=== PATIENT | female | born 1960 | race Caucasian/White ===

== ENCOUNTER 2017-04-24 18:12 | Inpatient (IN) | payer OTHER ==
[~2017-04-24] VITALS: Ht 175.3 cm; Wt 84.0 kg
[~2017-04-24 18:12] MED LIST: ASCA500 PO; ASPEC81 PO; ATOR-26 PO; CRG625 PO; DIGO0.2518 PO; FRS/40 PO; LSN25 PO; MULT-506 PO; PARO1TAB29 PO; PT UNSURE OF MEDS; SPIR25TA PO
[2017-04-24] MEDS ORDERED: SODIUM CHLORIDE 0.9% 1000ML 2,000 ML IV STA (18:32)
[2017-04-24] MEDS ORDERED: ONDANSETRON INJ 2 MG/ML 2 ML VIAL IV STA ×2 (18:32→19:13)
[2017-04-24 18:40] LABS: BASO % 0.2 %; BASO ABS # 0.04 K/uL (0-0.2); COMPLETE YES; HEMATOCRIT 40.7 % (37-47); IG% 0.5 %; LYMPH ABS # 1.82 K/uL (1.2-3.4); MEAN CELL VOLUME 95.3 fL (80-100); MEAN CORPUSCULAR HEMOGLOBIN 32.3 pg (25-34); MEAN CORPUSCULAR HGB CONC 33.9 g/dl (32-36); MEAN PLATELET VOLUME 11.1 fL (7.4-10.4); MONO % 6.7 %; NEUT % 83.6 %; PLATELET COUNT 382 K/uL (130-400); RED BLOOD COUNT 4.27 M/uL (4.2-5.4); WHITE BLOOD COUNT 20.13 K/uL (4.8-10.8)
[2017-04-24] MEDS ORDERED: LNX25 PO (18:46)
[2017-04-24] MEDS ORDERED: LOSA1TAB PO (18:46)
[2017-04-24] MEDS ORDERED: MELO15TA4 PO (18:46)
[2017-04-24] MEDS ORDERED: ASPI81TA28 PO (18:46)
[2017-04-24] MEDS ORDERED: ASCA500 PO (18:46)
[2017-04-24] MEDS ORDERED: CARV12.52 PO (18:46)
[2017-04-24] MEDS ORDERED: CHOL20009 PO (18:46)
[2017-04-24] MEDS ORDERED: CYAN10004 PO (18:46)
[2017-04-24 18:53] LABS: ISTAT CREATININE 1.2 mg/dl (0.6-1.3); ISTAT HEMOGLOBIN 14.3 g/dl (12.0-16.0); ISTAT IONIZED CALCIUM 1.2 mmol/l (1.12-1.32)
[2017-04-24] MEDS ORDERED: INSULIN HUMAN REGULAR SC SCH (19:00)
[2017-04-24] MEDS ORDERED: NovoLIN-R INSULIN PER UNIT CHARGE ONE (19:00)
[2017-04-24 19:03] LABS: VEN BLD GAS O2 SATURATION 66.1 %; VEN BLOOD GAS BASE EXCESS -10.8 mmol/L
[2017-04-24 19:11] LABS: BUN/CREATININE RATIO 23.6 (10-20); CALCIUM 9.4 mg/dl (8.5-10.1); CREATININE 1.5 mg/dl (0.60-1.20)
[2017-04-24] MEDS ORDERED: INSULIN IV INFUSION PROTOCOL STA (19:13)
[2017-04-24] MEDS ORDERED: MODERATE STRESS LEVEL ONE (19:15)
[2017-04-24] MEDS ORDERED: DKA GOAL RANGE 150-250 mg/dl 1 EA ONE ×2 (19:15→19:30)
[2017-04-24] MEDS ORDERED: INSULIN IV INFUSION PROTOCOL SCH (19:21)
[2017-04-24] MEDS ORDERED: INSULIN REGULAR 250 UNITS in SODIUM CHLORIDE 0.9% 250ML 250 ML IV ONE (19:30)
[2017-04-24] MEDS ORDERED: ALUMINUM/MAGNESIUM/SIMETH (MAALOX MAX) 30 ML UDC PO PRN (19:30)
[2017-04-24] MEDS ORDERED: MAGNESIUM HYDROXIDE SUSP 30 ML UDC PO PRN (19:30)
[2017-04-24] MEDS ORDERED: ONDANSETRON INJ 2 MG/ML 2 ML VIAL IV PRN (19:30)
[2017-04-24] MEDS ORDERED: ACETAMINOPHEN 325 MG TAB PO PRN (19:30)
[2017-04-24] MEDS ORDERED: ZOLPIDEM TARTRATE 5 MG TAB PO PRN (19:30)
[2017-04-24] MEDS ORDERED: POLYETHYLENE (MIRALAX) 17 GM PACK PO PRN (19:30)
[2017-04-24] MEDS ORDERED: DC ALL PREVIOUSLY ORDERED DIABETES MEDS ONE (19:30)
[2017-04-24 19:45] LABS: BETA-HYDROXYBUTYRATE 83.28 mg/dL (0.2-2.81)
[2017-04-24 19:50] LABS: URINE APPEARANCE CLEAR (CLEAR); URINE BILIRUBIN NEG (NEG); URINE COLOR YELLOW; URINE EPITHELIAL CELL AUTO 20-30 /lpf (0-5); URINE NITRITE NEG (NEG); URINE SPECIFIC GRAVITY 1.028 (1.000-1.030); UROBILINOGEN NEG (NEG); ZZUR CULT IF INDIC CLEAN CATCH NO
[2017-04-24 20:03] LABS: MANUAL MICROSCOPIC REQUIRED? NO; REVIEW REQ? NO
--- NOTE | 2017-04-24 20:14 | History and Physical ---
History & Physical Date & Time of Service: Apr 24, 2017 at 19:48 Chief Complaint: Nausea, Vomiting Since 0630 Primary Care Physician: RV. Short MD History of Present Illness Source: patient 56 y/o F Hx DM 1, nonischemic cardiomyopathy, ICD/pacer, depression. Pt had an insulin pump placed 4 days ago and has had some difficulty controlling her glucose since then. Over the last day she developed lower abdominal pain, nausea, vomiting and weakness. She presented to the ER where initial labs confirm moderate DKA. She denies CP, SOB, fevers or dysuria. 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 An echo in 2007 reports an EF of 20%. Family History Father due to ESRD Mother alive - DM Social History No history of smoking - occasional ETOH use Smoking Status: Never Smoker Immunizations History of Influenza Vaccine: Yes History of Tetanus Vaccine?: Unknown History of Pneumococcal: Yes History of Hepatitis B Vaccine: Unknown Multi-Drug Resistant Organisms History of MDRO: No Allergies Coded Allergies: Simvastatin (Verified Allergy, Mild, UNSURE, 12/20/09) Home Medications Scheduled Ascorbic Acid (Vitamin C), 500 MG PO DAILY Aspirin (Aspirin Ec), 81 MG PO DAILY Atorvastatin (Lipitor), 80 MG PO DAILY Carvedilol (Coreg), 12.5 MG PO DAILY Cholecalciferol (Vitamin D), 4,000 UNITS PO DAILY Cyanocobalamin (Vitamin B-12 1000 Mcg), 1,000 MCG PO DAILY Digoxin (Digoxin), 0.25 MG PO DAILY Furosemide (Lasix), 40 MG PO DAILY Losartan Potassium (Cozaar), 25 MG PO DAILY Meloxicam (Mobic), 15 MG PO DAILY Multivitamin (Multivitamin), 1 TAB PO DAILY Paroxetine (Paxil), 40 MG PO DAILY Review of Systems Constitutional: + weakness, No fever, No chills, No sweats Eyes: No worsening of vision, No eye pain ENT: No hearing loss, No unusual epistaxis, No nasal symptoms Respiratory: No cough, No sputum, No wheezing Cardiovascular: No chest pain, No orthopnea, No PND Abdomen: + pain, + nausea, + vomiting, No diarrhea, No constipation Musculoskeletal: No joint pain, No muscle pain Genitourinary - Female: No dysuria, No urinary frequency, No urinary urgency Neurologic: + weakness, No memory loss, No paralysis Psychiatric: + depression symptoms Endocrine: + fatigue Hematologic / Lymphatic: No abnormal bleeding/bruising Integumentary: No rash Allergic / Immunologic: No environmental allergies Physical Exam Vital Signs Date Time Temp Pulse Resp B/P (MAP) Pulse Ox O2 Delivery O2 Flow Rate FiO2 04/24/17 19:34 112 16 144/72 98 Room Air 04/24/17 19:05 109 04/24/17 18:16 36.9 114 20 111/66 99 Room Air General Appearance: WD/WN, + mild distress Head: normocephalic, atraumatic Eyes: normal inspection, PERRL, EOMI ENT: normal ENT inspection, hearing grossly normal, TMs normal, pharynx normal Neck: supple, no adenopathy, thyroid normal, no JVD Respiratory/Chest: chest non-tender, lungs clear, normal breath sounds, no respiratory distress, no accessory muscle use Cardiovascular: regular rate, rhythm, no edema, no gallop, no JVD, no murmur, normal peripheral pulses Abdomen/GI: normal bowel sounds, soft, + tenderness (Lower quadrant tenderness without gurading or rebound) Back: normal inspection, no CVA tenderness, no muscle spasm, normal range of motion Extremities/Musculoskelatal: normal inspection, no calf tenderness, normal capillary refill, no pedal edema, normal range of motion Neurologic/Psych: controls project 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 II-XII nml as tested, no motor/sensory deficits, alert, normal mood/affect, normal reflexes, oriented x 3 Skin: normal color, warm/dry, no rash Diagnostics Laboratory Results Results Past 24 Hours Test 04/24/17 18:27 04/24/17 18:30 04/24/17 18:42 04/24/17 18:50 Range/Units Bedside Glucose 486 70-90 mg/dl White Blood Count 20.13 4.8-10.8 K/uL Red Blood Count 4.27 4.2-5.4 M/uL Hemoglobin 13.8 12.0-16.0 g/dL Hematocrit 40.7 37-47 % Mean Corpuscular Volume 95.3 80-100 fL Mean Corpuscular Hemoglobin 32.3 25-34 pg Mean Corpuscular Hemoglobin Concent 33.9 32-36 g/dl Platelet Count 382 130-400 K/uL Mean Platelet Volume 11.1 7.4-10.4 fL Neutrophils (%) (Auto) 83.6 % Lymphocytes (%) (Auto) 9.0 % Monocytes (%) (Auto) 6.7 % Eosinophils (%) (Auto) 0.0 % Basophils (%) (Auto) 0.2 % Neutrophils # (Auto) 16.81 1.4-6.5 K/uL Lymphocytes # (Auto) 1.82 1.2-3.4 K/uL Monocytes # (Auto) 1.35 0.11-0.59 K/uL Eosinophils # (Auto) 0.00 0-0.5 K/uL Basophils # (Auto) 0.04 0-0.2 K/uL RDW Standard Deviation 45.0 36.4-46.3 fL RDW Coefficient of Variation 12.9 11.5-14.5 % Immature Granulocyte % (Auto) 0.5 % Immature Granulocyte # (Auto) 0.11 0.00-0.02 K/uL Sodium Level 135 136-145 mmol/L Potassium Level 5.0 3.5-5.1 mmol/L Chloride Level 94 98-107 mmol/L Carbon Dioxide Level 15 21-32 mmol/L Anion Gap 26.0 24.0 16-25 mmol/L Blood Urea Nitrogen 35 7-18 mg/dl Creatinine 1.50 0.60-1.20 mg/dl Est Creatinine Clear Calc Drug Dose 49.6 ml/min Estimated GFR () 45.3 Estimated GFR (Non- 39.1 BUN/Creatinine Ratio 23.6 10-20 Random Glucose 465 70-99 mg/dl Calcium Level 9.4 8.5-10.1 mg/dl Total Bilirubin 0.8 0.2-1 mg/dl Direct Bilirubin 0.2 0-0.2 mg/dl Aspartate Amino Transf (AST/SGOT) 19 15-37 U/L Alanine Aminotransferase (ALT/SGPT) 43 12-78 U/L Alkaline Phosphatase 169 45-117 U/L Total Protein 7.7 6.4-8.2 gm/dl Albumin 3.8 3.4-5.0 gm/dl Lipase 61 73-393 U/L Beta-Hydroxybutyric Acid 83.28 0.2-2.81 mg/dL Digoxin Level 0.4 0.8-2.0 ng/ml Bedside Hemoglobin 14.3 12.0-16.0 g/dl Bedside Hematocrit 42 37-47 % Bedside Sodium 132 135-144 mEq/L Bedside Potassium 4.9 3.3-5.0 mEq/L Bedside Chloride 96 101-112 mEq/L Bedside Total CO2 18 24-31 mEq/l Bedside Blood Urea Nitrogen 33 7-18 mg/dl Bedside Creatinine 1.2 0.6-1.3 mg/dl Bedside Glucose (other) 497 70-99 mg/dl Bedside Ionized Calcium (Christine) 1.20 1.12-1.32 mmol/l Venous Blood pH 7.29 7.36-7.41 Venous Blood Partial Pressure CO2 31 38.0-50.0 mmHg Venous Blood Partial Pressure O2 36 mmHg Venous Blood HCO3 15 mmol/L Venous Blood Oxygen Saturation 66.1 % Venous Blood Base Excess -10.8 mmol/L Test 04/24/17 19:05 04/24/17 19:35 Range/Units Lactic Acid Level 2.0 0.4-2.0 mmol/L Urine Test NEG NEG EKG Ventricular pacing Impression Assessment and Plan 56 y/o F Hx DM 1, nonischemic cardiomyopathy, ICD/pacer, depression. Pt had an insulin pump placed 4 days ago and has had some difficulty controlling her glucose since then. Over the last day she developed lower abdominal pain, nausea, vomiting and weakness. She presented to the ER where initial labs confirm moderate DKA. She denies CP, SOB, fevers or dysuria. 1) DKA - placed on DKA protocol and admitted to telemetry. Insulin GTT, IVF, antiemetics, pain control provided. Electrolytes will be checked Q4H and corrected accordingly. 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 2) CHF - nonischemic cardiomyopathy - represents a management challenge as she requires IVF currently for treatment of DKA. We will monitor her volume status closely and D/C fluids when possible. She is currently clinically dehydrated and her Lasix is held for AM pending reassessment. We will provide IV Lasix as needed. 3) Depression - cont Paxil Full code Heparin prophylaxis Total time for this admit including review of labs, meds, EKG - discussion with pt and ER attending - 40 min Level of Care Telemetry Resuscitation Status FULL RESUSCITATION VTE Prophylaxis VTE Risk Assessment Done? Y/N: Yes Risk Level: Moderate Given or contraindicated: Unfractionated heparin SQ
[2017-04-24] MEDS ORDERED: HYDROmorphone INJ 1 MG/ML SYR IV PRN (20:15)
[2017-04-24] MEDS: INSULIN ASPART 100 UNITS/ML 3 ML PEN SC SCH (21:00)
[2017-04-24] MEDS ORDERED: INSULIN ASPART 100 UNITS/ML 3 ML PEN SC SCH (21:00)
[2017-04-24] MEDS: INSULIN REGULAR 250 UNITS in SODIUM CHLORIDE 0.9% 250ML 250 ML IV SCH (21:15)
[2017-04-24] MEDS ORDERED: DEXTROSE 50% 50 ML SYR IV PRN (21:15)
[2017-04-24] MEDS ORDERED: GLUCOSE 10 TABS/TUBE PO PRN (21:15)
[2017-04-24] MEDS ORDERED: GLUCOSE 40% GEL 15 GM TUBE PO PRN (21:15)
[2017-04-24] MEDS ORDERED: GLUCAGON FOR INJ 1 MG VIAL SQ PRN (21:15)
[2017-04-24 21:20] VITALS: BP 171/75; TEMP 37; O2SAT 99; BMI 27.3
[2017-04-24 21:31] LABS: PROTHROMBIN TIME (PATIENT) 10.5 SECONDS (9.0-12.0)
[2017-04-24 21:56] LABS: MAGNESIUM 2.2 mg/dl (1.8-2.4); PHOSPHORUS 3.9 mg/dl (2.5-4.9)
[2017-04-24] MEDS ORDERED: PAROXETINE 20 MG TAB PO ONE (22:00)
[2017-04-24] MEDS: PENDING D5NS+20mEq KCL IVF SCH (22:00)
[2017-04-24] MEDS ORDERED: PENDING NSS+20mEq KCL IVF SCH (22:00)
[2017-04-24] MEDS ORDERED: NSS + 20MEQ KCL 1000ML 1,000 ML IV SCH (22:45)
[2017-04-24 23:49] VITALS: BP 115/66; PULSE 104; TEMP 36.8; O2SAT 97
[2017-04-25] VITALS (9 sets, daily range): BP systolic 95–161; BP diastolic 57–74; PULSE 73–96; TEMP 36.6–37.1; O2SAT 93–99
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
[2017-04-25] MEDS: PENDING D5NS+20mEq KCL IVF SCH ×4 (02:00→05:45)
[2017-04-25] MEDS: D5NSS + 20MEQ KCL 1,000 ML IV SCH ×3 (02:16→17:32)
[2017-04-25 05:08] LABS: MAGNESIUM 2.2 mg/dl (1.8-2.4); PHOSPHORUS 2.9 mg/dl (2.5-4.9)
[2017-04-25] MEDS: HEPARIN SOD 5000 UNIT/0.5 ML CARP SQ SCH ×3 (05:45→21:19)
--- NOTE | 2017-04-25 08:04 | Family Medicine Progress Note ---
Progress Note Date of Service Apr 25, 2017. Subjective Pt evaluation today including: conversation w/ patient, conversation w/ family , physical exam, chart review, lab review, review of studies, conversation w/ cardiology consultants, review of inpatient medication list Patient states she is feeling better this morning. She has had no further vomiting since her episode in the ED. Her nausea and abdominal pain are much improved, although they did peak a little when she had her full liquid breakfast in the morning. Her other complaint currently is a mild fontal/ temporal headache. She otherwise denies ocular/vision changes, lightheadedness, dyspnea, CP, palpitations. She states she hasn't eaten recently and thus has not had a bowel movement for a couple of days, but denies feeling constipated. She also denies UTI symptoms, or any other URI symptoms, or fevers/chills in general. When asked about the pump, she really is not sure whether or not she was using the pump correctly, or whether the pump was malfunctioning. In hindsight, she realizes she should have simply self injected when the sugar readings on the pump repeatedly read >600. All Other Systems: Reviewed and Negative Objective Vital Signs Date Time Temp Pulse Resp B/P (MAP) Pulse Ox O2 Delivery O2 Flow Rate FiO2 04/25/17 04:00 99 Room Air 04/25/17 04:00 37.1 91 20 145/70 (95) 94 Room Air 04/25/17 00:00 99 Room Air 04/24/17 23:49 36.8 104 20 115/66 (82) 97 Room Air 04/24/17 21:20 37.0 20 171/75 99 Room Air 04/24/17 20:24 112 20 121/83 98 04/24/17 19:34 112 16 144/72 98 Room Air 04/24/17 19:05 109 04/24/17 18:16 36.9 114 20 111/66 99 Room Air Physical Exam General Appearance: WD/WN, no apparent distress Eyes: normal inspection, PERRL, EOMI ENT: hearing grossly normal, pharynx normal Neck: supple, no adenopathy, thyroid normal, no JVD Respiratory/Chest: lungs clear, normal breath sounds, no respiratory distress, no accessory muscle use Cardiovascular: regular rate, rhythm, + normal peripheral pulses Abdomen: normal bowel sounds, soft, + tenderness (mild. all along lower abdomen ), + pertinent finding (not distended, no guarding) Extremities: no calf tenderness, + pedal edema, + pertinent finding (wearing a right ankle brace for previous orthopedic issues) Neurologic/Psychiatric: alert, normal mood/affect, oriented x 3 Skin: normal color, warm/dry, no rash Laboratory Results Results Past 24 Hours Test 04/25/17 00:16 04/25/17 01:17 04/25/17 03:19 04/25/17 04:35 Range/Units Bedside Glucose 177 163 161 70-90 mg/dl Venous Blood pH 7.40 7.36-7.41 Phosphorus Level 2.9 2.5-4.9 mg/dl Magnesium Level 2.2 1.8-2.4 mg/dl Test 04/25/17 05:24 04/25/17 07:33 04/25/17 08:13 04/25/17 09:12 Range/Units Bedside Glucose 134 138 251 70-90 mg/dl Venous Blood pH 7.40 7.36-7.41 Sodium Level 140 136-145 mmol/L Potassium Level 4.0 3.5-5.1 mmol/L Chloride Level 106 98-107 mmol/L Carbon Dioxide Level 23 21-32 mmol/L Anion Gap 11.0 3-11 mmol/L Blood Urea Nitrogen 22 7-18 mg/dl Creatinine 1.20 0.60-1.20 mg/dl Est Creatinine Clear Calc Drug Dose 62.1 ml/min Estimated GFR () 59.3 Estimated GFR (Non- 51.2 BUN/Creatinine Ratio 18.4 10-20 Random Glucose 153 70-99 mg/dl Calcium Level 8.6 8.5-10.1 mg/dl Phosphorus Level 2.2 2.5-4.9 mg/dl Magnesium Level 2.2 1.8-2.4 mg/dl Test 04/25/17 11:08 04/25/17 12:16 04/25/17 13:05 04/25/17 15:02 Range/Units Bedside Glucose 179 202 107 70-90 mg/dl Venous Blood pH 7.40 7.36-7.41 Sodium Level 142 136-145 mmol/L Potassium Level 4.2 3.5-5.1 mmol/L Chloride Level 108 98-107 mmol/L Carbon Dioxide Level 26 21-32 mmol/L Anion Gap 8.0 3-11 mmol/L Blood Urea Nitrogen 22 7-18 mg/dl Creatinine 1.40 0.60-1.20 mg/dl Est Creatinine Clear Calc Drug Dose 53.2 ml/min Estimated GFR () 49.2 Estimated GFR (Non- 42.5 BUN/Creatinine Ratio 15.5 10-20 Random Glucose 168 70-99 mg/dl Calcium Level 8.5 8.5-10.1 mg/dl Phosphorus Level 1.7 2.5-4.9 mg/dl Magnesium Level 2.3 1.8-2.4 mg/dl Test 04/25/17 15:44 04/25/17 16:03 Range/Units Bedside Glucose 109 70-90 mg/dl Venous Blood pH 7.39 7.36-7.41 Sodium Level 144 136-145 mmol/L Potassium Level 4.7 3.5-5.1 mmol/L Chloride Level 110 98-107 mmol/L Carbon Dioxide Level 28 21-32 mmol/L Anion Gap 6.0 3-11 mmol/L Blood Urea Nitrogen 20 7-18 mg/dl Creatinine 1.20 0.60-1.20 mg/dl Est Creatinine Clear Calc Drug Dose 62.1 ml/min Estimated GFR () 59.3 Estimated GFR (Non- 51.2 BUN/Creatinine Ratio 16.9 10-20 Random Glucose 128 70-99 mg/dl Calcium Level 8.6 8.5-10.1 mg/dl Phosphorus Level 2.4 2.5-4.9 mg/dl Magnesium Level 2.2 1.8-2.4 mg/dl Assessment and Plan 56 year old female presents with PMHx DM type 1 x 43year, nonischemic cardiomyopathy (EF 20% as of 2007), ICD/pacer, depression admitted for lower abdominal pain, nausea, vomiting and weakness confirmed by initial to be moderate DKA. DKA - placed on DKA protocol with resolution of DKA as per labs and clinical improvement of symptoms. Patient follows with [facility] endocrinology, and her previous regimen was extensively reviewed. Patient does not count carbs at home. Patient was transitioned to SC insulin and drips were discontinued successfully. - Lantus 15units SC qAM (Lantus 20units was attempted this morning, but caused BGS readings of low 100, and thus dose diminished.) Reassess tomorrow with full diet, and adjust as necessary. - ISS with CF 1 unit for 8 grams of carbs - BGS ac/hs - Monitor BMP - driver messenger consulted - patient's family asked to bring pump from home. CHF - nonischemic cardiomyopathy with reduced EF. Represented management challenge as IVF required for DKA treatment. Fluids discontinued as soon as it was safe to do so. - Monitor volume status closely - Restart home Lasix upon reassessment in the morning, if appropriate. Elevated WBC - likely stress induced from DKA - Trend CBC Depression - Continue paroxetine VTE PPx - Heparin SC FULL CODE Resident Physician Supervision Note: I was present with PGY 1 Dr. Ny Khan during the history and exam. I discussed the case with the resident and agree with the findings and plan as documented in the note. Any exceptions or clarifications are listed here: CHF is chronic systolic CHF. Pt w/o complaints this am. Headache, abd pain, nausea - all resolved. Pt reports she does not have pump at the hospital -"it's at home with parts all over the house." [facility]. Hemoglobin a1cs over the last year have all been >8. She had been taking lantus 30 units daily and using novolog for meals. Novolog was 10 units AC with sliding coverage (2 units for every 50 about 150). This was her regimen prior to the pump. Records suggest noncompliance with insulin regimen and diet. Insulin drip - required about 35 units of insulin since admission. VSS no fever gen - nad neck - no JVD heart - RRR lungs - CTA b/l abd - soft, NT ext - no edema labs - anion gap closed Cr 1.2 pH 7.4 bicarb normal A/P: T1DM with DKA due to insulin pump malfunction vs inability to use the pump correctly vs other. No signs of infectious process. Lantus 20 units SC x 1 now then wean drip off over next 4-6 hours. Difficult to say how much lantus she will require due to issues in the outpatient setting. Could be 20-30 units daily vs 15 BID vs other. Stop fluids this afternoon. Advance diet. Can stop q4h labs and resume daily labs thereafter. Diabetes education consult tomorrow to determine if pump is working correctly and/or she is knowledgable enough to resume its use. Chronic systolic CHF - compensated time 40 minutes, much of which was spent reviewing outpatient records Documented By: Yrn Guo MD Continued [facility] stay due to: abnormal vital signs, other Discharge planning: home Resident Tracking Resident Involvement: Resident Care Provided Care Provided: Adult Hospital Medicine
[2017-04-25 08:46] LABS: BUN/CREATININE RATIO 18.4 (10-20); CREATININE 1.2 mg/dl (0.60-1.20); MAGNESIUM 2.2 mg/dl (1.8-2.4); PHOSPHORUS 2.2 mg/dl (2.5-4.9)
[2017-04-25 09:11] LABS: CALCIUM 8.6 mg/dl (8.5-10.1)
[2017-04-25] MEDS: CARVEDILOL 12.5 MG TAB PO SCH (09:11)
[2017-04-25] MEDS: CYANOCOBALAMIN 500 MCG TAB (VIT B-12) PO SCH (09:11)
[2017-04-25] MEDS: ATORVASTATIN 40 MG TAB PO SCH (09:12)
[2017-04-25] MEDS: LOSARTAN POTASSIUM 25 MG TAB PO SCH (09:12)
[2017-04-25] MEDS: PAROXETINE 20 MG TAB PO SCH (09:13)
[2017-04-25] MEDS: INSULIN ASPART 100 UNITS/ML 3 ML PEN SC SCH ×4 (09:21→21:19)
[2017-04-25] MEDS: ASPIRIN 81 MG ECTAB PO SCH (09:47)
[2017-04-25] MEDS: INSULIN REGULAR 250 UNITS in SODIUM CHLORIDE 0.9% 250ML 250 ML IV SCH (11:30)
[2017-04-25 12:42] LABS: BUN/CREATININE RATIO 15.5 (10-20); CALCIUM 8.5 mg/dl (8.5-10.1); CREATININE 1.4 mg/dl (0.60-1.20); POTASSIUM 4.2 mmol/L (3.5-5.1)
[2017-04-25 12:44] LABS: MAGNESIUM 2.3 mg/dl (1.8-2.4); PHOSPHORUS 1.7 mg/dl (2.5-4.9)
[2017-04-25] MEDS ORDERED: LANTUS PER UNIT CHARGE SQ ONE (12:45)
[2017-04-25] MEDS: POT PHOSPHATE MONOBASIC W/ SOD TAB PO SCH ×3 (13:46→21:09)
[2017-04-25] MEDS ORDERED: DIGOXIN 0.25 MG TAB PO SCH (16:00)
[2017-04-25 16:32] LABS: BUN/CREATININE RATIO 16.9 (10-20); CALCIUM 8.6 mg/dl (8.5-10.1); CREATININE 1.2 mg/dl (0.60-1.20); POTASSIUM 4.7 mmol/L (3.5-5.1)
[2017-04-25 16:57] LABS: MAGNESIUM 2.2 mg/dl (1.8-2.4); PHOSPHORUS 2.4 mg/dl (2.5-4.9)
[2017-04-25] MEDS ORDERED: NURSING VERBAL MED ORDER ONE (19:45)
[2017-04-26] VITALS: O2SAT 99
[2017-04-26 00:33] VITALS: BP 167/80; PULSE 83; TEMP 36.9; O2SAT 94
[2017-04-26 04:00] VITALS: O2SAT 99
[2017-04-26 04:23] VITALS: BP 170/74; PULSE 84; TEMP 36.7; O2SAT 94
[2017-04-26] MEDS: HEPARIN SOD 5000 UNIT/0.5 ML CARP SQ SCH ×2 (05:23→12:53)
[2017-04-26 07:02] VITALS: BP 149/75; PULSE 83; TEMP 37.1; O2SAT 93
[2017-04-26 07:24] LABS: BASO % 0.2 %; BASO ABS # 0.02 K/uL (0-0.2); COMPLETE YES; EOS % 0.4 %; HEMATOCRIT 35.9 % (37-47); IG% 0.2 %; LYMPH % 19.1 %; LYMPH ABS # 1.56 K/uL (1.2-3.4); MEAN CELL VOLUME 95.7 fL (80-100); MEAN CORPUSCULAR HEMOGLOBIN 32.3 pg (25-34); MEAN CORPUSCULAR HGB CONC 33.7 g/dl (32-36); MEAN PLATELET VOLUME 10.2 fL (7.4-10.4); MONO % 6.6 %; NEUT % 73.5 %; PLATELET COUNT 209 K/uL (130-400); RED BLOOD COUNT 3.75 M/uL (4.2-5.4); WHITE BLOOD COUNT 8.16 K/uL (4.8-10.8)
[2017-04-26] MEDS ORDERED: NURSING VERBAL MED ORDER ONE (07:45)
[2017-04-26 07:58] LABS: BUN/CREATININE RATIO 15.5 (10-20); CALCIUM 8.5 mg/dl (8.5-10.1); MAGNESIUM 2.2 mg/dl (1.8-2.4); POTASSIUM 4.3 mmol/L (3.5-5.1)
[2017-04-26 07:59] LABS: PHOSPHORUS 2.5 mg/dl (2.5-4.9)
[2017-04-26 08:09] LABS: BETA-HYDROXYBUTYRATE 19.5 mg/dL (0.2-2.81)
[2017-04-26] MEDS: INSULIN ASPART 100 UNITS/ML 3 ML PEN SC SCH ×2 (08:14→12:51)
[2017-04-26] MEDS: ASPIRIN 81 MG ECTAB PO SCH (08:16)
[2017-04-26] MEDS: POT PHOSPHATE MONOBASIC W/ SOD TAB PO SCH ×2 (08:17→12:53)
[2017-04-26] MEDS: PAROXETINE 20 MG TAB PO SCH (08:17)
[2017-04-26] MEDS: LOSARTAN POTASSIUM 25 MG TAB PO SCH (08:17)
[2017-04-26] MEDS: ATORVASTATIN 40 MG TAB PO SCH (08:17)
[2017-04-26] MEDS: CYANOCOBALAMIN 500 MCG TAB (VIT B-12) PO SCH (08:17)
[2017-04-26] MEDS: CARVEDILOL 12.5 MG TAB PO SCH (08:17)
[2017-04-26 09:00] LABS: ESTIMATED AVERAGE GLUCOSE 220 mg/dl; HA1C FLAG Normal (Normal)
[2017-04-26] MEDS ORDERED: INSULIN GLARGINE SOLOSTAR 100 UNITS/ML 3 ML PEN SC SCH (09:00)
[2017-04-26] MEDS ORDERED: LANTUS PER UNIT CHARGE SC SCH (09:00)
[2017-04-26] MEDS ORDERED: INSULIN GLARGINE SOLOSTAR 100 UNITS/ML 3 ML PEN SC ONE (11:30)
[2017-04-26 12:23] VITALS: Ht 175.3 cm; Wt 84.0 kg
--- NOTE | 2017-04-26 13:16 | Discharge Instructions ---
Discharge Instructions Date of Service Apr 26, 2017. Admission Reason for Admission: Dka (Diabetic Ketoacidoses) Discharge Discharge Diagnosis / Problem: Diabetic Ketoacidosis Discharge Goals Goal(s): Decrease discomfort, Improve function, Increase independence, Improve disease control, Improve nutritional status, Learn about illness Activity Recommendations Activity Limitations: resume your previous activity . Instructions / Follow-Up Instructions / Follow-Up Insulin Regimen We do not recommended restarting your insulin pump until you see your test engine evaluator. We recommend a subcutaneous manual insulin regimen comprised of the followinunits of Lantus once daily. 13 units of Novolog with meals. If you skip a meal you may skip the Novolog. We recommend checking blood sugars 2 hours after meals. The target blood sugar after two hours is less than 200mg/dl. Please records your blood sugars in a log book. Please follow up with your test engine evaluator within the next week and bring your log book to this appointment. Current Hospital Diet Patient's current hospital diet: Diabetes Type 1 Diet Discharge Diet Recommended Diet: Diabetes Type 1 Diet Pending Studies Studies pending at discharge: no Laboratory Results Hemoglobin A1c Test 04/26/17 07:10 Range/Units Estimated Average Glucose 220 mg/dl Hemoglobin A1c 9.3 H 4.5-5.6 % Medical Emergencies . Who to Call and When: Medical Emergencies: If at any time you feel your situation is an emergency, please call 911 immediately. . Non-Emergent Contact Non-Emergency issues call your: Primary Care Provider, Specialist ( test engine evaluator) . . "Provider Documentation" section prepared by Peewee Arshad. . VTE Core Measure Inpt VTE Proph given/why not?: Unfractionated heparin SQ Resident Involvement: Resident Care Provided Care Provided: Adult Hospital Medicine
[2017-04-26 15:36] VITALS: BP 149/75; PULSE 83; TEMP 37.1; O2SAT 93
--- NOTE | 2017-04-26 16:58 | Discharge Summary ---
Discharge Summary Date of Service Apr 26, 2017. (Peewee Arshad M.D.) Discharge Summary Admission Date: Apr 24, 2017 at 19:30 Discharge Date: Apr 26, 2017 Discharge Disposition: Home Principal Diagnosis: Diabetic Ketoacidosis Immunizations: Have You Had Influenza Vaccine: Yes History of Tetanus Vaccine?: Unknown History of Pneumococcal: Yes History of Hepatitis B Vaccine: Unknown (Peewee Arshad M.D.) Discharge Exam The patient was seen and examined at bedside. No acute overnight events. She did not sleep well because her roommate was hallucinating. Pt understands the importance of good glycemic control. Pt education was done. Pt was told that target sugars 2hours after a meal were <180mg/dl. Patient is resting comfortably in bed. Eating and urinating well. Plan of care was described to the patient and all questions were answered. ROS: No chest pain, no SOB, no difficulty breathing, no headaches, no nausea, no vomiting, no dysuria. Physical Exam: General Appearance: WD/WN, no apparent distress Respiratory/Chest: chest non-tender, lungs clear, normal breath sounds, no respiratory distress, no accessory muscle use Cardiovascular: regular rate, rhythm, no edema, no gallop, no JVD, no murmur , normal peripheral pulses Abdomen / GI: normal bowel sounds, non tender, soft, no organomegaly, no pulsatile mass, normal rectal exam, occult blood negative Extremities: normal inspection, no calf tenderness, normal capillary refill , no pedal edema, normal range of motion Neurologic/Psychiatric: cloth sander II-XII nml as tested, no motor/sensory deficits , alert, normal mood/affect, normal reflexes, oriented x 3 Skin: no rash (Peewee Arshad M.D.) Hospital Course 56 year old female presents with PMHx DM type 1 x 43year, nonischemic cardiomyopathy (EF 20% as of 2007), ICD/pacer, depression admitted for lower abdominal pain, nausea, vomiting and weakness confirmed by initial to be moderate DKA. Patient had been given an insulin pump and says that it appears the pump is administering insulin - she has also been noticing that her sugars have been creeping upwards - pump was held on discharge due to concerns about mechanical malfunction. Patient was discharged on a recommended dose of 40units of Lantus and 13units of Novolog with meals. Pt was also given diabetic instruction regarding increasing novolog dose with carbohydrate heavy meals and decreasing novolog if she eats less. Insulin pump was discontinued until she can follow up with her manager department ( Dr. Hernandez). No changes were made to the patient's other medications. Total Time Spent: Greater than 30 minutes This includes examination of the patient, discharge planning, medication reconciliation, and communication with other providers. (Peewee Arshad M.D.) Resident Physician Supervision Note: I interviewed and examined the patient. Discussed with Dr. Arshad and agree with findings and plan as documented in the note. Any exceptions or clarifications are listed here: None Documented By: Justin Sahu feeling better discussed sugar control will go on basal bolus and f/u w endocrine ROS otherwise negative except for as above vitals noted nad breathing unlabored no pallor or icterus uncontrolled DM / DKA - improved - stable for home, continue to work with endocrine for better overall control Total Time Spent: Less than 30 minutes (Justin Sahu, D.O.) Discharge Instructions Please refer to the electronic Patient Visit Report (Discharge Instructions) for additional information. (Peewee Arshad M.D.) Additional Copies To RV. Short MD; Linda Hernandez M.D. Resident Involvement: Resident Care Provided Care Provided: Adult Hospital Medicine (Peewee Arshad M.D.)
== END 2017-04-26 16:44 | disposition home or self-care (01) | DRG 638 ==
LOC: C.EDB 18:13 → C.MED 19:30 → ENRESERV 19:39
PROVIDERS: ADMIT Internal Medicine; ATTEND Family Medicine
DX: E10.10 Type 1 diabetes mellitus with ketoacidosis without coma (principal); I50.22 Chronic systolic (congestive) heart failure; F32.9 Major depressive disorder, single episode, unspecified; Z96.41 Presence of insulin pump (external) (internal); Z79.4 Long term (current) use of insulin; Z95.0 Presence of cardiac pacemaker; Z79.82 Long term (current) use of aspirin; Z79.899 Other long term (current) drug therapy

== ENCOUNTER → 2018-06-22 | Outpatient (CLI) | payer OTHER ==
[~2018-06-22] MED LIST changes: -ASPEC81 PO; +ASPI81TA28 PO; +CARV12.52 PO; +CHOL20009 PO; -CRG625 PO; +CYAN10004 PO; -DIGO0.2518 PO; +LNX25 PO; +LOSA1TAB PO; -LSN25 PO; +MELO-84 PO; -PT UNSURE OF MEDS; -SPIR25TA PO
--- NOTE | 2018-06-23 15:15 | MAMMOGRAPHY REPORT ---
BILATERAL DIGITAL DIAGNOSTIC MAMMOGRAM TOMOSYNTHESIS WITH CAD AND LEFT ULTRASOUND: 06/22/2018 CLINICAL HISTORY: History of biopsy-proven left breast DCIS diagnosed in 2013, however, the patient d eclined to have surgery. History of benign right breast stereotactic biopsy. The patient denies any n ew complaints. TECHNIQUE: The study was acquired using full field digital technology and interpreted from soft copy. Breast tomosynthesis in addition to standard 2D mammography was performed. Current study was also ev aluated with a Computer Aided Detection (CAD) system. Bilateral CC and MLO 2D and tomosynthesis imag es and spot magnification left CC and ML views were obtained. COMPARISON: Comparison is made to exams dated: 10/12/2016 mammogram, 08/20/2015 mammogram, 08/07/2015 mammogram, 08/20/2015 stereotactic biopsy, 01/05/2014 stereotactic biopsy, and 11/21/2013 mammogram - [facility]. BREAST COMPOSITION: The tissue of both breasts is heterogeneously dense, which may obscure small mass es. FINDINGS: Again noted are 2 adjacent biopsy marker clips in the left upper outer quadrant, at the site of prior stereotactic biopsy which yielded DCIS. Again noted are extensive amorphous calcifications througho ut the left superior breast, with total extent of the calcifications measuring at least 8.3 x 6.0 cm. The calcifications do not appear significantly changed dating back to at least the July 2015 ex am. A small 6 mm nodular asymmetry was seen within the left superior breast on the MLO view, which i s less prominent on the spot magnification view and may represent normal tissue although ultrasound w as performed. The remainder of both breasts are stable compared to prior exams, without suspicious m asses, calcifications, or areas of architectural distortion noted. A biopsy clip is again noted with in the right 12:00 breast from prior benign stereotactic biopsy. Targeted ultrasound was performed of the left superior breast in the region of the mammographic asymm etry as well as amorphous calcifications. In the left 11:00 periareolar breast, there is an oval hyp oechoic non-circumscribed 8 x 3 x 4 mm mass. The mass is indeterminant for malignancy and ultrasound -guided core needle biopsy is recommended for further evaluation. Another hypoechoic tubular structu re is seen more anteriorly measuring at least 10 x 6 mm which may represent a dilated duct. Limited ultrasound evaluation of the left axilla demonstrates morphologically normal left axillary lymph node s without evidence of adenopathy. IMPRESSION: ACR BI-RADS CATEGORY 4: SUSPICIOUS, ULTRASOUND ACR BI-RADS CATEGORY 4: SUSPICIOUS 1. Extensive amorphous calcifications throughout the left superior breast, not significantly changed and consistent with the biopsy-proven DCIS. As before, surgical excision is recommended. A hypoech oic 8 mm solid mass is seen within the left 11:00 periareolar breast on ultrasound, which is indeterm inate for malignancy and ultrasound-guided core needle biopsy is recommended for further evaluation. 2. No mammographic evidence of malignancy in the right breast. Recommend follow-up in 1 year. A phone call was made to the physician's office to confirm faxed results were received. The patient has been verbally notified of the results. She tentatively scheduled the biopsy before l eaving the department. Some breast cancers are not detected with mammography. A negative mammographic report should not lisbet y biopsy if a clinically suggestive mass is present. Soniya Corcoran M.D. ah/:06/22/2018 15:09:08 Entry Driver Operator: Nika Lambert, [facility] letter sent: Abnormal 4/5 OVERALL STUDY BIRADS: 4 Suspicious abnormality
== END | disposition home or self-care (01) ==
LOC: C.MAMM 09:30
PROVIDERS: ATTEND Internal Medicine
DX: R92.0 Mammographic microcalcification found on diagnostic imaging of breast (principal)

== ENCOUNTER → 2018-07-07 | Outpatient (CLI) | payer OTHER ==
--- NOTE | 2018-07-07 13:07 | Discharge Instructions ---
Discharge Instructions Procedure Procedure Date: Jul 07, 2018. Reason for visit: Left Mass. Discharge Discharge Date: Jul 07, 2018. Discharge Diagnosis: status post breast biopsy Instructions Activity Recommendations: Additional Limitations (see below) Return to School/Work: no limitations Recommended Home Diet: No Limitations Provider Instructions: ACTIVITY RECOMMENDATIONS: * No lifting, pushing, pulling or exercising the affected side for three days. RETURN TO SCHOOL/WORK: * You may return to work/school after the procedure, but do not perform any strenuous activities for 24 to 48 hours. MEDICATIONS: * Tylenol (two 325 mg) every four to six hours if needed for mild pain (if not allergic to Tylenol). DIET: * Resume previous diet. SPECIAL CARE INSTRUCTIONS: * Keep biopsy site dry for 24 hours. May shower after 24 hours, but do not soak (bathe) incision. * May remove Tegaderm (plastic patch) 24 hours after procedure * Leave the steri-strips on for one week. Allow the steri-strips to fall off by themselves. If not off after one week, you may remove them. You may place a Bandaid crosswise over the strips, if desired. * Apply ice 10 minutes on and 10 minutes off as needed. * Wear a bra at bedtime to sleep more comfortably for 2-3 days. * Your referring physician should have the results after approximately 5 to 7 business days. * Call for unusual bleeding, fever, drainage, etc or if you have any questions call during normal business hours or after hours call Dr Corcoran, . FOLLOW UP VISIT: Follow-up with Referring Physician as scheduled. Allergies Coded Allergies: Simvastatin (Verified Allergy, Mild, UNSURE, 12/20/09) Sina Lemus Recommendations: Call your doctor if: * Temperature above 101 degrees * Pain not relieved by pain medicine ordered * There is increased drainage or redness from any incision * You have any unanswered questions or concerns. Your Doctors Instructions noted above were prepared by provider Soniya Corcoran. Patient Signature Section: Patient Instructions Signature Page Donna Resendiz Patient (or Guardian) Signature/Date: I have read and understand the instructions given to me by my caregivers. Caregiver/RN/Doctor Signature/Date: The above-named patient and/or guardian has received patient instructions on this date. + Original Patient Signature Page (only) stays with chart. Please make copy for patient.
--- NOTE | 2018-07-07 15:11 | MAMMOGRAPHY REPORT ---
UNILATERAL LEFT DIGITAL DIAGNOSTIC MAMMOGRAM TOMOSYNTHESIS: 07/07/2018 CLINICAL HISTORY: Status post left breast biopsy. TECHNIQUE: Breast tomosynthesis in addition to standard 2D mammography was performed. Postprocedure left CC and ML tomosynthesis images were obtained. COMPARISON: Comparison is made to exams dated: 06/22/2018 mammogram, 10/12/2016 mammogram, 08/20/2015 m ammogram, and 08/07/2015 mammogram - [facility]. BREAST COMPOSITION: The tissue of left breast is heterogeneously dense, which may obscure small kavon s. FINDINGS: A new ribbon-shaped biopsy marker clip is seen in the expected location of the biopsied mas s in the left 11:00 breast. No significant postbiopsy hematoma is seen. Two adjacent clips are agai n noted within the left upper outer quadrant from prior biopsy which yielded DCIS. IMPRESSION: POST PROCEDURE IMAGING FOR MARKER PLACEMENT New biopsy marker clip status post ultrasound-guided biopsy of a left 11:00 breast mass. Pathology r esults are pending. Some breast cancers are not detected with mammography. A negative mammographic report should not lisbet y biopsy if a clinically suggestive mass is present. Soniya Corcoran M.D. /:07/07/2018 13:21:27 Health And Safety Consultant: Nika Lambert, [facility] BI-RADS Code: Post Procedure Imaging For Marker Placement
--- NOTE | 2018-07-07 15:11 | MAMMOGRAPHY REPORT ---
THIS REPORT HAS BEEN AMENDED. ULTRASOUND GUIDED BIOPSY LEFT BREAST: 07/07/2018 CLINICAL HISTORY: Left 11:00 breast mass. PATIENT CONSENT: The procedure, risks and benefits were discussed with the patient and informed writt en consent was obtained. A timeout was performed immediately prior to the procedure. PROCEDURE DESCRIPTION: With ultrasound guidance, aseptic technique, and lidocaine as the local anesth etic (1% lidocaine to anesthetize the skin and 1% lidocaine with epinephrine to anesthetize the deepe r tissues), the mass of concern in the left 11:00 periareolar breast was sampled 4 times with a 14-ga uge Achieve biopsy needle. Immediately thereafter, with ultrasound guidance, a ribbon shaped metall ic localizer clip was placed at the biopsy site. Direct pressure was applied to the site immediately post procedure until hemostasis was achieved. Postprocedure unilateral mammograms were performed to confirm clip placement; see separate dictation for details. Steri-Strips were placed over the site and covered with an Opsite patch. The patient tolerated the procedure without complication. She was given wound care instructions. The specimens were sent to pathology for analysis. COMPARISON: Comparison is made to exams dated: 06/22/2018 ultrasound, 06/22/2018 mammogram, 10/12/2016 u ltrasound, 10/12/2016 mammogram, 08/20/2015 mammogram, and 08/07/2015 mammogram - [facility]. IMPRESSION: ULTRASOUND GUIDED BIOPSY Ultrasound-guided core needle biopsy of the left 11:00 breast mass, with clip placement. The patient will receive pathology results from her referring provider. Soniya Corcoran M.D. ah/:07/07/2018 13:08:19 Real Estate Rep: Nika Lambert, [facility] AMENDMENT: 07/11/2018 Soniya Corcoran M.D. Pathology results from ultrasound-guided core needle biopsy of the left 11:00 breast mass were review ed on 07/11/2018. Pathology results show a hyalinized fibroadenoma; the pathology is benign and conco rdant with the imaging appearance, and no further follow-up is needed for this mass. As recommended on the recent diagnostic mammogram report, surgical excision is still recommended for left breast mayelin cifications which yielded DCIS on prior biopsy. Amended BI-RADS: ACR BI-RADS Category 2: Benign
== END | disposition home or self-care (01) ==
LOC: C.MAMM 12:32
PROVIDERS: ATTEND Internal Medicine
DX: N63.20 Unspecified lump in the left breast, unspecified quadrant (principal); D24.2 Benign neoplasm of left breast